=== PATIENT | male | born 1940 | race Caucasian/White ===

== ENCOUNTER 2021-02-11 18:38 | Observation (INO) | payer MEDICARE ==
[2021-02-11 20:27] LABS: #Basophils 0.1 10x3/uL (0.0-0.2); #Eosinphils 0.1 10x3/uL (0.0-0.5); #Monocytes 0.8 10x3/uL (0.0-1.1); #Neutrophils 13.8 10x3/uL (1.5-8.4); %Basophils 0.8 % (0.0-2.0); %Eosinophils 0.8 % (0.0-6.0); %Lymphocytes 10.3 % (18.0-47.0); %Monocytes 4.7 % (0.0-10.0); %Neutrophils 82.7 % (40.0-75.0); Hemoglobin 12.3 g/dL (13.5-17.5); Mean Corpuscular HGB CONC 33.5 g/dL (32.0-36.0); Mean Corpuscular Hemoglobin 30.6 pg (27.0-33.0); Mean Corpuscular Volume 91.3 fl (81.2-95.1); Mean Platelet Volume 10.1 fl (7.4-10.4); Platelet Count 375 10x3/uL (150-450); RBC Distribution Width 15.8 % (11.5-14.5); Red Blood Cell (RBC) Count 4.02 10x6/uL (4.32-5.72); White Blood Cell (WBC) Count 16.7 10x3/uL (3.5-10.5)
[2021-02-11 20:43] LABS: ALT (SGPT) 26 U/L (8-55); AST (SGOT) 24 U/L (5-34); Albumin 4.1 g/dL (3.4-4.8); Alkaline Phosphatase 82 U/L (40-110); Anion Gap 14 mmol/L (10-20); BUN (Urea Nitrogen) 28 mg/dL (8.4-25.7); Bilirubin, Total 0.3 mg/dL (0.2-1.2); CK (CPK) 63 U/L (30-200); Calc. Creatinine Clearance 0 mL/min (70-130); Calcium 9.2 mg/dL (7.8-10.44); Carbon Dioxide 16 mmol/L (23-31); Chloride 115 mmol/L (98-107); Globulin 2.8 g/dL (2.4-3.5); Glucose 92 mg/dL (83-110); Potassium 5.9 mmol/L (3.5-5.1); Protein, Total 6.9 g/dL (5.8-8.1); Sodium 139 mmol/L (136-145)
[2021-02-11] MEDS ORDERED: Sodium Bicarbonate 150 MEQ in Dextrose 5% in Water 1,000 ML IV SCH (21:45)
[2021-02-11] MEDS ORDERED: Calcium Chloride 1 GM/10 ML Abboject SYRINGE ONE (21:55)
[2021-02-11] MEDS ORDERED: Dextrose 50% Abboject 50 ML SYRINGE ONE (21:56)
[2021-02-11] MEDS ORDERED: Sodium Bicarb 50 MEQ/50 ML Abboject 8.4% SYRINGE ONE (21:56)
[2021-02-11] MEDS ORDERED: Insulin Regular 300 UNITS/3 ML VIAL ONE (21:58)
[2021-02-11] MEDS ORDERED: Morphine 2 MG/ML VIAL ONE (22:31)
[2021-02-11] MEDS ORDERED: Nitroglycerin 2% Ointment 1 INCH/1 GM Packet ONE (22:31)
[2021-02-11] MEDS ORDERED: Senokot S 8.6-50 MG TAB PO PRN (22:33)
[2021-02-11] MEDS ORDERED: Calcium Carbonate 500 MG ChewTAB PO PRN (22:33)
[2021-02-11] MEDS ORDERED: Acetaminophen 325 MG TAB PO PRN (22:33)
[2021-02-11] MEDS ORDERED: Zolpidem Tartrate 5 MG TAB PO PRN (22:33)
[2021-02-11] MEDS ORDERED: traMADol HCl 50 MG TAB PO PRN (22:36)
[2021-02-11] MEDS ORDERED: hydrALAZINE 20 MG/ML VIAL SLOW IVP PRN (22:38)
[2021-02-11] MEDS ORDERED: Nitroglycerin 0.4 MG TAB (25 Tab Bottle) SL PRN (22:38)
[2021-02-11] MEDS ORDERED: Sodium Chloride 0.45% 1,000 ML IV SCH (22:45)
[2021-02-12 03:43] LABS: SARS-CoV-2 NAA Rapid Test Not Detected (NotDetected)
[2021-02-12 04:52] LABS: Anion Gap 10 mmol/L (10-20); BUN (Urea Nitrogen) 24 mg/dL (8.4-25.7); Calc. Creatinine Clearance 0 mL/min (70-130); Calcium 9.3 mg/dL (7.8-10.44); Carbon Dioxide 22 mmol/L (23-31); Chloride 113 mmol/L (98-107); Glucose 102 mg/dL (83-110); Potassium 5.3 mmol/L (3.5-5.1); Sodium 140 mmol/L (136-145)
[2021-02-12 05:06] LABS: #Basophils 0.1 10x3/uL (0.0-0.2); #Eosinphils 0.1 10x3/uL (0.0-0.5); #Monocytes 0.6 10x3/uL (0.0-1.1); #Neutrophils 11.6 10x3/uL (1.5-8.4); %Basophils 0.8 % (0.0-2.0); %Eosinophils 0.8 % (0.0-6.0); %Lymphocytes 11.3 % (18.0-47.0); %Monocytes 4.5 % (0.0-10.0); Hemoglobin 10.7 g/dL (13.5-17.5); Mean Corpuscular HGB CONC 33.2 g/dL (32.0-36.0); Mean Corpuscular Hemoglobin 30.9 pg (27.0-33.0); Mean Corpuscular Volume 93.1 fl (81.2-95.1); Mean Platelet Volume 9.9 fl (7.4-10.4); Platelet Count 327 10x3/uL (150-450); RBC Distribution Width 15.6 % (11.5-14.5); Red Blood Cell (RBC) Count 3.46 10x6/uL (4.32-5.72); White Blood Cell (WBC) Count 14.2 10x3/uL (3.5-10.5)
[2021-02-12] MEDS ORDERED: Amlodipine 5 MG TAB PO SCH (09:00)
[2021-02-12] MEDS ORDERED: Amlodipine 5 MG TAB ONE (09:56)
[2021-02-12] MEDS ORDERED: Metoprolol Tartrate 25 MG TAB ONE (09:56)
[2021-02-12] MEDS ORDERED: Clopidogrel Bisulfate 75 MG TAB ONE (09:56)
[2021-02-12] MEDS: Clopidogrel Bisulfate 75 MG TAB PO SCH (10:01)
[2021-02-12] MEDS: Metoprolol Tartrate 25 MG TAB PO SCH ×2 (10:01→20:59)
[2021-02-12 13:05] LABS: Anion Gap 13 mmol/L (10-20); BUN (Urea Nitrogen) 20 mg/dL (8.4-25.7); Calc. Creatinine Clearance 0 mL/min (70-130); Calcium 8.8 mg/dL (7.8-10.44); Carbon Dioxide 21 mmol/L (23-31); Chloride 110 mmol/L (98-107); Glucose 110 mg/dL (83-110); Potassium 5.1 mmol/L (3.5-5.1); Sodium 139 mmol/L (136-145)
[2021-02-12] MEDS: Sodium Bicarbonate 150 MEQ in Dextrose 5% in Water 1,000 ML IV SCH (14:36)
[2021-02-12 17:49] LABS: #Basophils 0.1 10x3/uL (0.0-0.2); #Eosinphils 0.1 10x3/uL (0.0-0.5); #Monocytes 0.6 10x3/uL (0.0-1.1); #Neutrophils 12.7 10x3/uL (1.5-8.4); %Basophils 0.6 % (0.0-2.0); %Eosinophils 0.4 % (0.0-6.0); %Lymphocytes 9.5 % (18.0-47.0); %Monocytes 3.7 % (0.0-10.0); %Neutrophils 85.2 % (40.0-75.0); Hemoglobin 10.4 g/dL (13.5-17.5); Mean Corpuscular HGB CONC 33.5 g/dL (32.0-36.0); Mean Corpuscular Hemoglobin 31.1 pg (27.0-33.0); Mean Corpuscular Volume 92.8 fl (81.2-95.1); Mean Platelet Volume 10.3 fl (7.4-10.4); Platelet Count 323 10x3/uL (150-450); RBC Distribution Width 15.3 % (11.5-14.5); Red Blood Cell (RBC) Count 3.34 10x6/uL (4.32-5.72); White Blood Cell (WBC) Count 14.9 10x3/uL (3.5-10.5)
[2021-02-12 18:06] LABS: Magnesium 1.4 mg/dL (1.6-2.6)
[2021-02-12 18:14] VITALS: BMI 26.8
[2021-02-12] MEDS: Atorvastatin Calcium 40 MG TAB PO SCH (20:59)
[2021-02-12] MEDS: Magnesium 2 GM/50 ML 2 GM in Premix Bag 1 BAG IVPB SCH (22:56)
[2021-02-13] MEDS ORDERED: Magnesium 2 GM/50 ML 2 GM in Premix Bag 1 BAG IVPB SCH
[2021-02-13] MEDS: Sodium Bicarbonate 150 MEQ in Dextrose 5% in Water 1,000 ML IV SCH ×2 (01:14→18:10)
[2021-02-13] MEDS: Magnesium 2 GM/50 ML 2 GM in Premix Bag 1 BAG IVPB SCH ×4 (01:16→07:00)
[2021-02-13 05:36] LABS: Albumin 3.5 g/dL (3.4-4.8); Phosphorus 2.5 mg/dL (2.3-4.7)
[2021-02-13 05:40] LABS: Anion Gap 14 mmol/L (10-20); BUN (Urea Nitrogen) 18 mg/dL (8.4-25.7); Calc. Creatinine Clearance 55 mL/min (70-130); Calcium 8.7 mg/dL (7.8-10.44); Carbon Dioxide 19 mmol/L (23-31); Chloride 110 mmol/L (98-107); Glucose 97 mg/dL (83-110); Potassium 4.4 mmol/L (3.5-5.1); Sodium 139 mmol/L (136-145)
[2021-02-13] MEDS ORDERED: Amlodipine 5 MG TAB PO SCH ×2 (09:00→15:15)
[2021-02-13] MEDS: Clopidogrel Bisulfate 75 MG TAB PO SCH (10:38)
[2021-02-13] MEDS: ALPRAZolam 0.25 MG TAB PO SCH (10:39)
[2021-02-13] MEDS: Metoprolol Tartrate 25 MG TAB PO SCH ×2 (10:41→21:03)
[2021-02-13 11:12] LABS: #Basophils 0.1 10x3/uL (0.0-0.2); #Eosinphils 0.1 10x3/uL (0.0-0.5); #Monocytes 0.6 10x3/uL (0.0-1.1); #Neutrophils 13.1 10x3/uL (1.5-8.4); %Basophils 0.6 % (0.0-2.0); %Eosinophils 0.5 % (0.0-6.0); %Lymphocytes 6.8 % (18.0-47.0); %Monocytes 3.7 % (0.0-10.0); %Neutrophils 87.9 % (40.0-75.0); Hemoglobin 10.7 g/dL (13.5-17.5); Mean Corpuscular HGB CONC 33.3 g/dL (32.0-36.0); Mean Corpuscular Hemoglobin 30.5 pg (27.0-33.0); Mean Corpuscular Volume 91.5 fl (81.2-95.1); Mean Platelet Volume 10.1 fl (7.4-10.4); Platelet Count 347 10x3/uL (150-450); RBC Distribution Width 15.3 % (11.5-14.5); Red Blood Cell (RBC) Count 3.51 10x6/uL (4.32-5.72)
[2021-02-13 11:14] LABS: ALT (SGPT) 21 U/L (8-55); AST (SGOT) 27 U/L (5-34); Albumin 3.4 g/dL (3.4-4.8); Alkaline Phosphatase 71 U/L (40-110); Anion Gap 15 mmol/L (10-20); BUN (Urea Nitrogen) 16 mg/dL (8.4-25.7); Bilirubin, Total 0.4 mg/dL (0.2-1.2); Calc. Creatinine Clearance 52 mL/min (70-130); Calcium 8.5 mg/dL (7.8-10.44); Carbon Dioxide 16 mmol/L (23-31); Chloride 109 mmol/L (98-107); Globulin 2.5 g/dL (2.4-3.5); Glucose 140 mg/dL (83-110); Potassium 4.2 mmol/L (3.5-5.1); Protein, Total 5.9 g/dL (5.8-8.1); Sodium 136 mmol/L (136-145)
[2021-02-13] MEDS ORDERED: Dextrose 5% in Water 1,000 ML ONE ×2 (14:27→14:29)
[2021-02-13] MEDS ORDERED: Enoxaparin Sodium 40 MG/0.4 ML SYRINGE SC SCH (21:00)
[2021-02-13] MEDS ORDERED: ALPRAZolam 0.5 MG TAB PO SCH (21:00)
[2021-02-13] MEDS ORDERED: Sodium Bicarbonate Tab 325 MG TAB PO SCH (21:00)
[2021-02-13] MEDS: Sodium Bicarbonate Tab 325 MG TAB PO SCH (21:02)
[2021-02-13] MEDS: Atorvastatin Calcium 40 MG TAB PO SCH (21:03)
[2021-02-14 07:53] LABS: Albumin 3.7 g/dL (3.4-4.8); Anion Gap 14 mmol/L (10-20); BUN (Urea Nitrogen) 16 mg/dL (8.4-25.7); BUN/Creatinine Ratio 10.67; Calc. Creatinine Clearance 48 mL/min (70-130); Calcium 8.6 mg/dL (7.8-10.44); Carbon Dioxide 18 mmol/L (23-31); Chloride 111 mmol/L (98-107); Glucose 99 mg/dL (83-110); Potassium 4.4 mmol/L (3.5-5.1); Sodium 139 mmol/L (136-145)
[2021-02-14 08:16] VITALS: TEMP 98.3
[2021-02-14] MEDS: Metoprolol Tartrate 25 MG TAB PO SCH (08:48)
[2021-02-14] MEDS: Clopidogrel Bisulfate 75 MG TAB PO SCH (08:48)
[2021-02-14] MEDS: ALPRAZolam 0.25 MG TAB PO SCH (08:49)
[2021-02-14] MEDS: Sodium Bicarbonate Tab 325 MG TAB PO SCH (08:49)
[2021-02-14] MEDS ORDERED: Amlodipine 10 MG TAB PO SCH (09:00)
[2021-02-14 12:05] VITALS: BP 135/64
[2021-02-14 12:39] LABS: Magnesium 1.9 mg/dL (1.6-2.6)
[2021-02-14 20:07] LABS: Iron 23 ug/dL (65-175); Iron Binding Capacity, Total 535 mcg/dL (261-462)
== END 2021-02-14 12:15 | disposition home or self-care (01) ==
LOC: CSHERS 18:38 → OBSVTOIN 22:32 → CSHERHOLD 22:32 → INTOOBSV 22:32 → UNDOADMIN 02-12 04:57 → CSHERHOLD 02-12 04:57 → CSHTELE 02-12 16:39
PROVIDERS: ADMIT Student in an Organized Health Care Education/Training Program; ATTEND Family Medicine
DX: E87.5 Hyperkalemia (principal); E87.2 Acidosis; R07.9 Chest pain, unspecified; I16.0 Hypertensive urgency; I12.9 Hypertensive chronic kidney disease with stage 1 through stage 4 chronic kidney disease, or unspecified chronic kidney disease; N18.30 Chronic kidney disease, stage 3 unspecified; N17.9 Acute kidney failure, unspecified; E78.5 Hyperlipidemia, unspecified; I25.10 Atherosclerotic heart disease of native coronary artery without angina pectoris; C61 Malignant neoplasm of prostate; I48.0 Paroxysmal atrial fibrillation; Z79.899 Other long term (current) drug therapy; Z95.1 Presence of aortocoronary bypass graft; Z87.891 Personal history of nicotine dependence; Z20.822 Contact with and (suspected) exposure to COVID-19; I73.9 Peripheral vascular disease, unspecified; N40.0 Benign prostatic hyperplasia without lower urinary tract symptoms
CPT/HCPCS: 71045; 76770; 80048 ×2; 80053; 80069; 82550; 83540; 83550; 83735 ×3; 84439; 84484 ×3; 85025 ×3; 93005 ×2; 93306; 96365; 96366; 96375; 96376; 99285; J2270; U0002; 36415; 82040; 84100; 84443; 93010; 96372; G0378; J0360; J1650; J1815; J3475; J7070

== ENCOUNTER 2021-04-28 13:53 | Outpatient (CLI) | payer OTHER | END 2021-04-28 13:54 | disposition home or self-care (01) | LOC: CSHMRI 13:53 | PROVIDERS: ATTEND Specialist | DX: M51.16 Intervertebral disc disorders with radiculopathy, lumbar region (principal); C61 Malignant neoplasm of prostate; C79.51 Secondary malignant neoplasm of bone; M48.061 Spinal stenosis, lumbar region without neurogenic claudication | CPT/HCPCS: 72148 ==

== ENCOUNTER 2022-06-15 12:10 | Outpatient (CLI) | payer OTHER | END 2022-06-15 12:11 | disposition home or self-care (01) | LOC: CSHMRI 12:10 | PROVIDERS: ATTEND Specialist | DX: M54.12 Radiculopathy, cervical region (principal); M47.812 Spondylosis without myelopathy or radiculopathy, cervical region; M48.02 Spinal stenosis, cervical region | CPT/HCPCS: 72141 ==

== ENCOUNTER 2022-07-22 18:27 | Inpatient (IN) | payer OTHER ==
[2022-07-22] MEDS ORDERED: Morphine 4 MG/ML VIAL ONE ×2 (19:23→20:51)
[2022-07-22 19:57] LABS: #Basophils 0.1 10x3/uL (0.0-0.2); #Eosinphils 0.2 10x3/uL (0.0-0.5); #Monocytes 0.5 10x3/uL (0.0-1.1); #Neutrophils 9.9 10x3/uL (1.5-8.4); %Basophils 0.9 % (0.0-2.0); %Eosinophils 1.3 % (0.0-6.0); %Lymphocytes 8.4 % (18.0-47.0); %Monocytes 4.4 % (0.0-10.0); %Neutrophils 84.5 % (40.0-75.0); Hemoglobin 11.8 g/dL (13.5-17.5); Mean Corpuscular HGB CONC 34.4 g/dL (32.0-36.0); Mean Corpuscular Hemoglobin 32.2 pg (27.0-33.0); Mean Corpuscular Volume 93.7 fl (81.2-95.1); Mean Platelet Volume 10.8 fl (7.4-10.4); Platelet Count 312 10x3/uL (150-450); RBC Distribution Width 16.3 % (11.5-14.5); Red Blood Cell (RBC) Count 3.66 10x6/uL (4.32-5.72); White Blood Cell (WBC) Count 11.7 10x3/uL (3.5-10.5)
[2022-07-22 20:08] LABS: PTT 29.6 sec (22.0-33.0); Prothrombin Time 10.4 sec (9.5-12.1)
[2022-07-22 20:12] LABS: Anion Gap 14 mmol/L (10-20); BUN (Urea Nitrogen) 28 mg/dL (8.4-25.7); Calc. Creatinine Clearance 0 mL/min (70-130); Calcium 8.9 mg/dL (7.8-10.44); Carbon Dioxide 19 mmol/L (23-31); Chloride 111 mmol/L (98-107); Estimated GFR 48; Glucose 94 mg/dL (83-110); Magnesium 1.9 mg/dL (1.6-2.6); Sodium 136 mmol/L (136-145)
[2022-07-22 20:14] LABS: Potassium 7.6 mmol/L (3.5-5.1)
[2022-07-22] MEDS ORDERED: Dextrose 50% Abboject 50 ML SYRINGE ONE ×3 (20:52→23:36)
[2022-07-22] MEDS ORDERED: Calcium Gluc 4.6 MEQ/10 ML (100 MG/ML) ONE ×2 (20:52→20:53)
[2022-07-22] MEDS ORDERED: Insulin Regular 300 UNITS/3 ML VIAL ONE (20:53)
[2022-07-22 21:57] LABS: Potassium 7.1 mmol/L (3.5-5.1)
[2022-07-22] MEDS ORDERED: Senokot S 8.6-50 MG TAB PO PRN (23:02)
[2022-07-22] MEDS ORDERED: Sodium Bicarb 50 MEQ/50 ML VIAL ONE ×4 (23:02→23:03)
[2022-07-22] MEDS ORDERED: Acetaminophen 325 MG TAB PO PRN (23:02)
[2022-07-22] MEDS ORDERED: Ondansetron PF 4 MG/2 ML Vial IVP PRN (23:02)
[2022-07-22] MEDS ORDERED: Calcium Carbonate 500 MG ChewTAB PO PRN (23:02)
[2022-07-22 23:03] LABS: Anion Gap 12 mmol/L (10-20); BUN (Urea Nitrogen) 27 mg/dL (8.4-25.7); Calc. Creatinine Clearance 0 mL/min (70-130); Calcium 9.1 mg/dL (7.8-10.44); Carbon Dioxide 18 mmol/L (23-31); Chloride 111 mmol/L (98-107); Estimated GFR 50; Glucose 133 mg/dL (83-110); Sodium 135 mmol/L (136-145)
[2022-07-22] MEDS ORDERED: Morphine 4 MG/ML VIAL SLOW IVP PRN (23:05)
[2022-07-22 23:10] LABS: Potassium 6.2 mmol/L (3.5-5.1)
[2022-07-23] MEDS ORDERED: Calcium Gluc 4.6 MEQ/10 ML (100 MG/ML) SLOW IVP SCH ×2 (00:30→05:00)
[2022-07-23] MEDS: HYDROcodone/Acetaminophen 5/325 mg Tablet PO PRN ×5 (00:40→20:02)
[2022-07-23] MEDS ORDERED: Sodium Chloride 0.9% 500 ML IV SCH (01:00)
[2022-07-23 01:46] LABS: SARS-CoV-2 NAA Rapid Test Not Detected (NotDetected)
[2022-07-23 02:04] LABS: Bilirubin Neg (Negative); Blood, Urine Negative (Negative); Clarity Clear (Clear); Glucose, Urine (Dipstick) 50 mg/dL (Negative); Ketone, Urine Negative (Negative); Leukocyte Negative (Negative); Nitrite Negative (Negative); Protein, Urine (Dipstick) 100 mg/dl (Neg-Trace); Specific Gravity, Urine 1.015 (1.005-1.030); Urobilinogen Normal mg/dL (Less than 2)
[2022-07-23 02:11] LABS: RBC/HPF 0-3 HPF (0-3); WBC/HPF 0-3 HPF (0-3)
[2022-07-23 02:12] LABS: Bacteria/HPF None Seen HPF (None Seen); Squamous Epithelial None Seen HPF (0-3)
[2022-07-23 04:23] LABS: #Basophils 0.1 10x3/uL (0.0-0.2); #Eosinphils 0.1 10x3/uL (0.0-0.5); #Monocytes 0.7 10x3/uL (0.0-1.1); #Neutrophils 12.2 10x3/uL (1.5-8.4); %Basophils 0.4 % (0.0-2.0); %Eosinophils 0.6 % (0.0-6.0); %Lymphocytes 7.5 % (18.0-47.0); %Monocytes 4.8 % (0.0-10.0); %Neutrophils 86.1 % (40.0-75.0); Hemoglobin 11.3 g/dL (13.5-17.5); Mean Corpuscular HGB CONC 34.3 g/dL (32.0-36.0); Mean Corpuscular Hemoglobin 32.2 pg (27.0-33.0); Mean Corpuscular Volume 93.7 fl (81.2-95.1); Mean Platelet Volume 11.1 fl (7.4-10.4); Platelet Count 303 10x3/uL (150-450); RBC Distribution Width 16.2 % (11.5-14.5); Red Blood Cell (RBC) Count 3.51 10x6/uL (4.32-5.72); White Blood Cell (WBC) Count 14.1 10x3/uL (3.5-10.5)
[2022-07-23 04:25] LABS: Actual Bicarbonate (HCO3v) 21 mEq/L (22-28); Base Excess -6.1 mEq/L (-2 - +2); Calcium, Ionized (venous) 1.28 mmol/L (1.16-1.32); Chloride (VBG) 106 mmol/L (98-106); Hemoglobin (Hb) 11.8 g/dL (12.6-17.4); Potassium (VBG) 6.64 mmol/L (3.70-5.30); Puncture Site Other Site; Sodium 136.8 mmol/L (133-146); pH (venous) 7.24 (7.32-7.43)
[2022-07-23 04:34] LABS: Anion Gap 12 mmol/L (10-20); BUN (Urea Nitrogen) 26 mg/dL (8.4-25.7); Calc. Creatinine Clearance 47 mL/min (70-130); Calcium 9.6 mg/dL (7.8-10.44); Carbon Dioxide 22 mmol/L (23-31); Chloride 112 mmol/L (98-107); Estimated GFR 50; Glucose 93 mg/dL (83-110); Sodium 139 mmol/L (136-145)
[2022-07-23 04:35] LABS: Potassium 7.3 mmol/L (3.5-5.1)
[2022-07-23] MEDS ORDERED: Sodium Bicarb 50 MEQ/50 ML VIAL IVP SCH (05:00)
[2022-07-23] MEDS ORDERED: Dextrose 50% Abboject 50 ML SYRINGE SLOW IVP SCH (05:00)
[2022-07-23] MEDS ORDERED: LOKELMA 5 GM PACKET PO SCH (05:00)
[2022-07-23] MEDS ORDERED: Insulin Regular 300 UNITS/3 ML VIAL IVP SCH (05:00)
[2022-07-23 06:46] LABS: Anion Gap 13 mmol/L (10-20); BUN (Urea Nitrogen) 25 mg/dL (8.4-25.7); Calc. Creatinine Clearance 50 mL/min (70-130); Calcium 9.7 mg/dL (7.8-10.44); Carbon Dioxide 21 mmol/L (23-31); Chloride 112 mmol/L (98-107); Estimated GFR 54; Glucose 101 mg/dL (83-110); Sodium 139 mmol/L (136-145)
[2022-07-23 06:50] LABS: Potassium 6.8 mmol/L (3.5-5.1)
[2022-07-23] MEDS ORDERED: Furosemide 100 MG/10 ML VIAL SLOW IVP SCH (08:00)
[2022-07-23] MEDS: Sodium Bicarbonate 150 MEQ, Admixture Fee 1 EACH in Dextrose 5% in Water 850 ML IV SCH ×2 (08:18→17:35)
[2022-07-23] MEDS: Clopidogrel Bisulfate 75 MG TAB PO SCH (10:10)
[2022-07-23] MEDS: Famotidine 20 MG TAB PO SCH (10:10)
[2022-07-23] MEDS: Amlodipine 10 MG TAB PO SCH ×2 (10:10→10:38)
[2022-07-23] MEDS: Metoprolol Tartrate 25 MG TAB PO SCH ×2 (10:10→20:02)
[2022-07-23] MEDS: Sodium Bicarbonate Tab 325 MG TAB PO SCH ×2 (10:11→20:01)
[2022-07-23 10:15] LABS: Anion Gap 18 mmol/L (10-20); BUN (Urea Nitrogen) 24 mg/dL (8.4-25.7); Calc. Creatinine Clearance 48 mL/min (70-130); Carbon Dioxide 15 mmol/L (23-31); Chloride 110 mmol/L (98-107); Estimated GFR 51; Glucose 108 mg/dL (83-110); Sodium 137 mmol/L (136-145)
[2022-07-23 10:18] LABS: Potassium 6.4 mmol/L (3.5-5.1)
[2022-07-23] MEDS: Morphine 2 MG/ML VIAL SLOW IVP PRN (11:18)
[2022-07-23 13:24] LABS: Potassium, Urine 66.6 mmol/L
[2022-07-23 13:55] LABS: Anion Gap 15 mmol/L (10-20); BUN (Urea Nitrogen) 23 mg/dL (8.4-25.7); Calc. Creatinine Clearance 45 mL/min (70-130); Calcium 9.4 mg/dL (7.8-10.44); Carbon Dioxide 20 mmol/L (23-31); Chloride 109 mmol/L (98-107); Estimated GFR 46; Glucose 110 mg/dL (83-110); Sodium 138 mmol/L (136-145)
[2022-07-23 14:05] LABS: Potassium 6.2 mmol/L (3.5-5.1)
[2022-07-23] MEDS: hydrALAZINE 25 MG TAB PO SCH ×3 (15:04→20:01)
[2022-07-23 18:27] LABS: Potassium 4.7 mmol/L (3.5-5.1)
[2022-07-23] MEDS ORDERED: Atorvastatin Calcium 40 MG TAB PO SCH (21:00)
[2022-07-23] MEDS ORDERED: Finasteride 5 MG TAB PO SCH (21:00)
[2022-07-24] MEDS: Sodium Bicarbonate 150 MEQ, Admixture Fee 1 EACH in Dextrose 5% in Water 850 ML IV SCH (01:13)
[2022-07-24 02:36] LABS: Anion Gap 13 mmol/L (10-20); BUN (Urea Nitrogen) 21 mg/dL (8.4-25.7); Calc. Creatinine Clearance 51 mL/min (70-130); Calcium 8.2 mg/dL (7.8-10.44); Carbon Dioxide 27 mmol/L (23-31); Chloride 101 mmol/L (98-107); Estimated GFR 55; Glucose 119 mg/dL (83-110); Potassium 4.3 mmol/L (3.5-5.1); Sodium 137 mmol/L (136-145)
[2022-07-24] MEDS: HYDROcodone/Acetaminophen 5/325 mg Tablet PO PRN ×2 (03:02→08:12)
[2022-07-24 04:15] VITALS: TEMP 98.2; BMI 24.9
[2022-07-24] MEDS: Morphine 2 MG/ML VIAL SLOW IVP PRN (08:13)
[2022-07-24] MEDS: Amlodipine 10 MG TAB PO SCH (09:19)
[2022-07-24] MEDS: Sodium Bicarbonate Tab 325 MG TAB PO SCH (09:19)
[2022-07-24] MEDS: Clopidogrel Bisulfate 75 MG TAB PO SCH (09:19)
[2022-07-24] MEDS: Famotidine 20 MG TAB PO SCH (09:19)
[2022-07-24] MEDS: hydrALAZINE 25 MG TAB PO SCH (09:20)
[2022-07-24] MEDS: Metoprolol Tartrate 25 MG TAB PO SCH (09:20)
[2022-07-24 11:23] VITALS: BP 175/68
== END 2022-07-24 13:15 | disposition home or self-care (01) | DRG 641 ==
LOC: CSHERS 18:27 → CSHICU 22:18
PROVIDERS: ADMIT Student in an Organized Health Care Education/Training Program; ATTEND Internal Medicine
DX: E87.5 Hyperkalemia (principal); S22.31XA Fracture of one rib, right side, initial encounter for closed fracture; N17.9 Acute kidney failure, unspecified; E87.20 Acidosis, unspecified; C61 Malignant neoplasm of prostate; E78.5 Hyperlipidemia, unspecified; F17.210 Nicotine dependence, cigarettes, uncomplicated; I48.0 Paroxysmal atrial fibrillation; I25.10 Atherosclerotic heart disease of native coronary artery without angina pectoris; N18.31 Chronic kidney disease, stage 3a; I16.0 Hypertensive urgency; D72.829 Elevated white blood cell count, unspecified; W19.XXXA Unspecified fall, initial encounter; I12.9 Hypertensive chronic kidney disease with stage 1 through stage 4 chronic kidney disease, or unspecified chronic kidney disease; Z20.822 Contact with and (suspected) exposure to COVID-19; Z79.899 Other long term (current) drug therapy; Z98.890 Other specified postprocedural states; Y92.89 Other specified places as the place of occurrence of the external cause; Z95.1 Presence of aortocoronary bypass graft
CPT/HCPCS: 36415; 36416; 71250; 80048; 81001; 82306; 82436; 82550; 82805; 83735; 84133; 84300; 85025; 85610; 85730; 93005; 94760; 94799; 96374; 96375; 96376; J0610; J1650; J1815; J1940; J2270; J2272; J7030; J7070; J7999; U0002

== ENCOUNTER 2022-09-28 18:25 | Emergency (ER) | payer MEDICARE, OTHER | END 2022-09-28 20:55 | disposition home or self-care (01) | LOC: CSHERS 18:25 | DX: S52.021A Displaced fracture of olecranon process without intraarticular extension of right ulna, initial encounter for closed fracture (principal); I10 Essential (primary) hypertension; E78.5 Hyperlipidemia, unspecified; F17.210 Nicotine dependence, cigarettes, uncomplicated; W17.89XA Other fall from one level to another, initial encounter | CPT/HCPCS: 29105 ==

== ENCOUNTER 2023-01-20 23:38 | Emergency (ER) | payer OTHER ==
[2023-01-21] MEDS ORDERED: dilTIAZem 25 MG/5 ML VIAL ONE (00:02)
[2023-01-21 00:17] LABS: #Basophils 0.1 10x3/uL (0.0-0.2); #Eosinphils 0.1 10x3/uL (0.0-0.5); #Monocytes 0.3 10x3/uL (0.0-1.1); #Neutrophils 5.8 10x3/uL (1.5-8.4); %Basophils 0.7 % (0.0-2.0); %Eosinophils 1.9 % (0.0-6.0); %Lymphocytes 13.7 % (18.0-47.0); %Monocytes 3.7 % (0.0-10.0); %Neutrophils 79.3 % (40.0-75.0); Hematocrit 42.6 % (38.8-50.0); Hemoglobin 14.6 g/dL (13.5-17.5); Mean Corpuscular HGB CONC 34.3 g/dL (32.0-36.0); Mean Corpuscular Hemoglobin 31.7 pg (27.0-33.0); Mean Corpuscular Volume 92.6 fl (81.2-95.1); Mean Platelet Volume 11.7 fl (7.4-10.4); Platelet Count 220 10x3/uL (150-450); RBC Distribution Width 15.9 % (11.5-14.5); White Blood Cell (WBC) Count 7.3 10x3/uL (3.5-10.5)
[2023-01-21 00:23] LABS: ALT (SGPT) Less than 7 U/L (8-55); AST (SGOT) 10 U/L (5-34); Albumin 3.8 g/dL (3.4-4.8); Alkaline Phosphatase 60 U/L (40-110); Anion Gap 16 mmol/L (10-20); BUN (Urea Nitrogen) 26 mg/dL (8.4-25.7); Bilirubin, Total 0.2 mg/dL (0.2-1.2); Calc. Creatinine Clearance 0 mL/min (70-130); Calcium 8.6 mg/dL (7.8-10.44); Carbon Dioxide 17 mmol/L (23-31); Chloride 113 mmol/L (98-107); Estimated GFR 54; Globulin 2.1 g/dL (2.4-3.5); Glucose 115 mg/dL (83-110); Potassium 4.9 mmol/L (3.5-5.1); Protein, Total 5.9 g/dL (5.8-8.1); Sodium 141 mmol/L (136-145)
[2023-01-21 00:30] LABS: Troponin I Less than 0.010 ng/mL (< 0.028)
== END 2023-01-21 02:06 | disposition left against medical advice (07) ==
LOC: CSHERS 23:38
DX: R07.9 Chest pain, unspecified (principal); I20.8 Other forms of angina pectoris; I48.91 Unspecified atrial fibrillation; I10 Essential (primary) hypertension; E78.5 Hyperlipidemia, unspecified; F17.210 Nicotine dependence, cigarettes, uncomplicated
CPT/HCPCS: 71045; 80053; 83880; 84484; 85025; 93005; 93010; 96374